=== PATIENT | male | born 1985 | race Hispanic/Latino ===

== ENCOUNTER 2023-01-25 09:57 | Emergency (ER) | payer SELFPAY ==
[2023-01-25] MEDS ORDERED: Proparacaine 0.5% Opth 15 ML BOT ONE (10:51)
[2023-01-25] MEDS ORDERED: Fluorescein Opthalmic Strip ONE (10:52)
[2023-01-25] MEDS ORDERED: Acetaminophen 500 MG TAB ONE (11:52)
[2023-01-25] MEDS ORDERED: Morphine 4 MG/ML VIAL ONE (15:12)
[2023-01-25] MEDS ORDERED: Ondansetron PF 4 MG/2 ML Vial ONE (15:14)
== END 2023-01-25 16:41 | disposition short-term general hospital (02) ==
LOC: ERS 09:57
DX: S02.32XA Fracture of orbital floor, left side, initial encounter for closed fracture (principal); H53.2 Diplopia; W22.8XXA Striking against or struck by other objects, initial encounter
CPT/HCPCS: 70486; 96374; 96375; J2270; J2405